=== PATIENT | female | born 1985 | race African-American/Black ===

== ENCOUNTER 2021-03-05 16:42 | Emergency (ER) | payer BC, MEDICAID, SELFPAY ==
[2021-03-05 16:48] VITALS: BP 143/87; PULSE 104; RESP 20; TEMP 36.4; O2SAT 100
[2021-03-05 17:16] LABS: Basophils Absolute Auto 0.1 K/mm3 (0.0-0.1); Basophils Percent Auto 0.5 % (0.2-1.2); Eosinophils Absolute Auto 0.3 K/mm3 (0-0.3); Eosinophils Percent Auto 1.9 % (0-4.4); Hematocrit 32.2 % (37.0-47.0); Hemoglobin 10.7 g/dL (12.0-15.0); Immature Granulocyte Absolute 0.38 K/mm3 (0.00-0.031); Immature Granulocyte Percent A 2.3 % (0-0.5); Lymphocytes Absolute Auto 2.91 K/mm3 (0.9-3.2); Mean Corpuscular HGB Conc 33.2 g/dl (32-36); Mean Corpuscular Hemoglobin 31.8 pg (26-34); Mean Corpuscular Volume 95.8 fl (80-100); Mean Platelet Volume 11.3 fl (7.4-10.4); Monocytes Percent Auto 12.4 % (2.6-8.5); Neutrophils Absolute Auto 10.5 K/mm3 (1.3-6.7); Neutrophils Percent Auto 64.9 % (45.5-73.1); Platelet Count Result 274 k/mm3 (150-375); Red Blood Count 3.36 M/mm3 (4.2-5.4); Red Cell Distribution Width 13.4 % (11.5-14.5); White Blood Count 16.2 K/mm3 (4.5-10.0)
--- NOTE | 2021-03-05 17:23 | PC.NURSE ---
Patient stated that she had been battling her depression for a while. She said in the past before she was she was taking zoloft, but was not able to get her prescription renewed. Patient explained when she said that she wanted to harm her children, it was only because she did not want to leave them behind. The patient was very tearful when explaining her feelings.
[2021-03-05 17:24] LABS: Alanine Aminotransferase 12 U/L (4-35); Albumin Level 3.6 g/dL (3.5-5.1); Alkaline Phosphatase 120 U/L (38-126); Anion Gap 4 mmol/L (8-16); Aspartate Amino Transferase 23 U/L (14-36); Bilirubin,Total < 0.1 mg/dL (0.2-1.3); Blood Urea Nitrogen 4 mg/dL (7-17); Calcium 8.7 mg/dL (8.4-10.2); Carbon Dioxide 21 mmol/L (22-30); Chloride 110 mmol/L (98-107); Estimated CRCL calculation 157 ml/min; Estimated Glomerular Filt Rate > 60; Ethanol < 10 mg/dL (<10); Glucose 81 mg/dL (65-105); Potassium 4.1 mmol/L (3.4-5.0); Sodium 135 mmol/L (137-145)
[2021-03-05 17:34] LABS: Add Urine Microscopic? YES; Appearance Urine Clear (Clear); Bacteria Urine Trace /hpf; Bilirubin Urine Negative (Negative); Blood Urine 2+ (Negative); Color Urine Straw (Yellow); Glucose Urine UA Negative (Negative); Ketones Urine Negative (Negative); Leukocyte Esterase Ur Negative LEU/UL (Negative); Mucus Urine Rare /lpf; Nitrate Urine Negative (Negative); Protein Urine 2+ mg/dL (Negative); RBC Urine 0-2 /hpf (0-2); Specific Grav Ur 1.005 (1.001-1.035); Squamous Epithelial Cell Urine Few /hpf (Few); Urobilinogen Urine Negative mg/dL (<2.0); WBC Urine 0-3 /hpf
[2021-03-05 17:44] LABS: Barbiturate Screen Urine Negative (Negative); Benzodiazepines Screen Urine Negative (Negative)
[2021-03-05 17:50] LABS: Amphetamine Screen Urine Negative (Negative); Cannabinoid Screen Urine Negative (Negative); Cocaine Screen Urine Negative (Negative); Methadone Screen Urine Negative (Negative); Opiate Screen Urine Negative (Negative); Phencyclidine Screen Urine Negative (Negative)
--- NOTE | 2021-03-05 18:11 | ED.PSYCH ---
HPI - Psych General Chief Complaint: Psychiatric Symptoms <ORLY Skelton - Last Filed: 03/05/21 21:48> Stated Complaint: SI <ORLY Skelton - Last Filed: 03/05/21 21:48> Time Seen by Provider: 03/05/21 17:02 <ORLY Skelton - Last Filed: 03/05/21 21:48> Source: patient <ORLY Skelton - Last Filed: 03/05/21 21:48> Mode of arrival: ambulatory <ORLY Skelton - Last Filed: 03/05/21 21:48> Limitations: no limitations <ORLY Skelton - Last Filed: 03/05/21 21:48> History of Present Illness HPI Narrative: Patient is a 35 year old female who presents with suicidal and homicidal ideations starting today. Patient is 36 weeks gestation. She has children ages 14, 7, and 2. Patient reports she is having thoughts of drowning her children and then overdosing herself. She reports that 14 year olds father is . Father of 7,2 and is not physically around a bunch . She reports financial assistance but no physical help with kids. 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 She reports approximately 2-3 months ago she discussed depression with OBGYN who started on Zoloft, but she stopped taking becasue of the way it made me feel . Patient denies taking any daily medications. She reports no history of depression, suicidal ideation or homicidal ideation. Patient reports cutting off contact with her family in the past few weeks and that PD completed a welfare check last week on patient. She reports supportive family, however, she has stopped talking to them for no reason. Patient reports that she called in to work x 2 last week. She reports she has no energy and that her home is messy and unorganized. Patient is tearful during assessment. She states that she does not want to harm herself or children but she has been having thoughts. <ORLY Skelton - Last Filed: 03/05/21 21:48> Related Data Home Medications: Home Medications Medication Instructions Recorded Confirmed Pre-Liz Multivitamins/Minerals 03/05/21 <ORLY Skelton - Last Filed: 03/05/21 21:48> Allergies/Adverse Reactions: Allergies Allergy/AdvReac Type Severity Reaction Status Date / Time No Known Allergies Allergy Verified 03/05/21 16:56 <ORLY Skelton - Last Filed: 03/05/21 21:48> Review of Systems Review of Systems: Narrative: CONSTITUTIONAL: Denies fever, chills, or sweats. EYES: Denies visual changes, redness, or discharge. ENT: Denies rhinorrhea, congestion, sore throat, or otalgia. CARDIOVASCULAR: Denies chest pain, palpitations, or edema. RESPIRATORY: Denies cough or dyspnea. GASTROINTESTINAL: Denies abdominal pain, nausea, vomiting, or diarrhea. GENITOURINARY: Denies dysuria or hematuria. SKIN: Denies rash or itching. MUSCULOSKELETAL: Denies back pain, joint pain, or myalgia. NEUROLOGIC: Denies headache, numbness, dizziness, or weakness. PSYCHIATRIC: Reports depression x months <ORLY Skelton - Last Filed: 03/05/21 21:48> [facility] Past Medical History Medical History: Medical History No significant past medical history <ORLY Skelton - Last Filed: 03/05/21 21:48> Surgical History Surgical History: Surgical History No significant past surgical history <ORLY Skelton - Last Filed: 03/05/21 21:48> Family History Family History: Family History (Updated 03/05/21 @ 18:26 by ORLY Skelton) Other Unknown family medical history <ORLY Skelton - Last Filed: 03/05/21 21:48> Social History Social History: Social History Substance use type: does not use Gender identity (if verbalized by the patient): Female <ORLY Skelton - Last Filed: 03/05/21 21:48> Comments At the time of signature, I have reviewed and agree with gabriella
[2021-03-05] MEDS: ACETAMINOPHEN 325 MG TABLET 650 MG PO (20:59)
[2021-03-06] MEDS: ACETAMINOPHEN 500 MG TABLET 1000 MG PO (04:42)
[2021-03-06 09:05] VITALS: BP 110/61; PULSE 86; RESP 10; TEMP 36.7; O2SAT 100
--- NOTE | 2021-03-06 16:09 | PC.NURSE ---
PT C/O L SHOULDER PAIN, REQUESTING TYLENOL. DR BURRELL NOTIFIED. DIGNA
[2021-03-06] MEDS: ACETAMINOPHEN 325 MG TABLET 650 MG PO (16:27)
--- NOTE | 2021-03-06 19:09 | PC.NURSE ---
Report received from FREDDY Engel. Assumed care of patient at this time.
[2021-03-06 19:55] LABS: SARS-CoV-2 RNA PCR Negative
--- NOTE | 2021-03-06 21:15 | PC.NURSE ---
rn spoke with crisis. crisis notified that pt has a negative covid test.
--- NOTE | 2021-03-06 22:36 | PC.NURSE ---
FREDDY Dunlap @ [facility] to fax packet for patient.
--- NOTE | 2021-03-06 22:46 | ECG_ITS ---
Measurements Intervals [place] Rate: 67 P: 72 NV: 185 QRS: 79 QRSD: 89 T: 43 QT: 376 QTc: 398 Interpretive Statements SINUS RHYTHM WITH SINUS ARRHYTHMIA NORMAL ECG Electronically Signed On 03-07-2021 6:23:39 CDT by Ari Bob D.O.
--- NOTE | 2021-03-06 23:56 | PC.NURSE ---
Pt escorted to room 309 for a shower with sitter and security monitor at this time.
--- NOTE | 2021-03-07 00:13 | PC.NURSE ---
Patient now back in her room escorted by security and sitter after her shower. Patient still has sitter at bedside.
--- NOTE | 2021-03-07 03:43 | PC.NURSE ---
Fabi from [facility] calls to inform this nurse that the patient is denied at this time, but can call or attempt to place her tomorrow. ED charge informed.
--- NOTE | 2021-03-07 06:05 | PC.NURSE ---
0057 Contacted crisis to come re-evaluate the patient. Spoke with Diane, she stated she will have someone come to re-evaluate the patient.
[2021-03-07 06:06] VITALS: BP 120/62; PULSE 80; RESP 16; TEMP 36.5; O2SAT 97
--- NOTE | 2021-03-07 07:26 | PC.NURSE ---
cold storage worker at bedside for re-eval. Pt resting on cart HOB elevated, non-labored respirations
--- NOTE | 2021-03-07 07:45 | PC.NURSE ---
Pt ambulated steady gait to BR, denies contractions or vaginal bleeding. Denies SI/HI I feel fine now, I'm ready to go home and hug my kids, and my daughter's 8th grade graduation is tomorrow morning . Pt states her mother is staying over with her kids, she has family support also for when the baby comes. Endorses she was in a dark place for past two weeks and was asking her providers for help, on Monday a co-worker called the crisis line which sent her here. She also has a telehealth appointment with a nurse practitioner tomorrow afternoon.
--- NOTE | 2021-03-07 09:21 | PC.NURSE ---
pt. muller requested toothbrush, toothpaste, and mouthwash. Items provided to pt. muller after asking RN in charge of pt.
--- NOTE | 2021-03-07 09:45 | PC.NURSE ---
1:1 sitter monitoring ongoing. Pt provided recliner for comfort. Per genetic engineer awaiting [facility] acceptance. Pt remains calm and cooperative, non-labored respirations
--- NOTE | 2021-03-07 13:00 | PC.NURSE ---
Pt has pamela using telephone in hallway to speak with family, pt tearful, consolable. Resting in recliner
--- NOTE | 2021-03-07 14:15 | PC.NURSE ---
Received call from construction pit worker at [facility], aware pt has been re-evaluated this am and inpatient still recommended. [facility] intake paged
--- NOTE | 2021-03-07 15:24 | PC.NURSE ---
Spoke with Acosta at crisis, states she will work on looking into further facilities for placement. Awaiting return call from Aaliyah (have paged twice) [phone]
--- NOTE | 2021-03-07 17:00 | PC.NURSE ---
Re-faxed information packet to [facility], spoke with mental health worker ([phone]) and states she will check with the nurse reviewing the records if they received the re-fax
[2021-03-07 17:55] VITALS: BP 115/66; PULSE 75; RESP 18; TEMP 36.7; O2SAT 100
[2021-03-07] MEDS: ACETAMINOPHEN 500 MG TABLET 1000 MG PO (18:05)
--- NOTE | 2021-03-07 18:28 | PC.NURSE ---
[facility]affi Verdin in [place] is currently full.
--- NOTE | 2021-03-07 18:53 | PC.NURSE ---
Pt sitting up on cart, calm and cooperative, states she is getting frustrated, has been speaking on telephone with family frequently. Completed dinner tray. 1:1 sitter monitoring ongoing
--- NOTE | 2021-03-07 21:20 | PC.NURSE ---
Pt remains calm and cooperative. Pt request supplies so that she can clean up. Pt given supplies. Pt currently resting in bed. Sitter outside the room.
[2021-03-07 23:21] VITALS: BP 119/70; PULSE 86; RESP 18; O2SAT 100
--- NOTE | 2021-03-07 23:23 | PC.NURSE ---
Pt remains calm and cooperative. No distress. Snack provided. Sitter with pt.
[2021-03-08] MEDS: ACETAMINOPHEN 500 MG TABLET 1000 MG PO (04:18)
[2021-03-08 05:53] VITALS: BP 118/67; PULSE 78; RESP 16; O2SAT 100
--- NOTE | 2021-03-08 06:06 | PC.NURSE ---
Pt remains calm and cooperative. Sitter with pt.
[2021-03-08] MEDS: polyethylene glycoL 3350 17 GM POWD.PACK PO (14:11)
--- NOTE | 2021-03-08 15:08 | PC.NURSE ---
Pt. becoming agitated about waiting. ERP aware. Pt. asking to speak with the ERP.
[2021-03-08 15:27] VITALS: BP 108/61; PULSE 85; RESP 14; TEMP 36.9; O2SAT 99
[2021-03-08 19:57] VITALS: BP 128/72; PULSE 70; RESP 18; TEMP 36.2; O2SAT 100
--- NOTE | 2021-03-08 20:05 | PC.NURSE ---
Pt presented to ED with homicidal ideations toward her children and suicidal ideations. Pt states she feels that she has been dealing with untreated post for the last 2 years after her last and is currently 39 weeks . Pt states she shared her feeling with her pcp and she completely disregarded all that I had to say. My friend told me that it was best that I came here and I didn't feel like my doctor was going to help me so I came. Now I don't feel like I'm getting the help I need here. I have spoke to a psychiatrist and they didn't give me zoloft or anything like that. I thought someone was going to talk to me, give me some medicine and then I could go home . Pt is calm and cooperative with staff and states that she is frustrated. Denies homicidal and suicidal ideations at this time. Vitals are stable and pt in no obvious distress.
--- NOTE | 2021-03-08 23:03 | PC.NURSE ---
Pt resting on cart in its lowest position. Remains calm and cooperative. Pt is in no obvious distress and advised to stop staff for assistance.
--- NOTE | 2021-03-09 00:43 | PC.NURSE ---
Pt on cart sleeping and in no obvious distress.
--- NOTE | 2021-03-09 00:48 | PC.NURSE ---
Crisis called for an update on pt bed status.
--- NOTE | 2021-03-09 00:51 | PC.NURSE ---
Spoke with Boy from [facility] who states they will continue to look for a bed for pt and should likely have a bed tomorrow or later today.
--- NOTE | 2021-03-09 00:53 | PC.NURSE ---
Boy states he will call back if he obtains any new information.
--- NOTE | 2021-03-09 02:17 | PC.NURSE ---
pt on cart sleeping and in no obvious distress.
--- NOTE | 2021-03-09 04:53 | PC.NURSE ---
Pt on cart sleeping and is in no obvious distress.
--- NOTE | 2021-03-09 05:59 | PC.NURSE ---
Pt on cart sleeping and is in no obvious distress.
--- NOTE | 2021-03-09 07:30 | PC.NURSE ---
Pt asleep, easily arousable, non-labored respirations. Awaiting crisis re-eval and placement
--- NOTE | 2021-03-09 08:30 | PC.NURSE ---
Pt sitting up on cart eating breakfast tray, states her mother and brother will come by today to vouch that they will support me and I can't go to [place], I deliver next week at [facility] . Pt denies contractions or vaginal bleeding, + movement.
--- NOTE | 2021-03-09 10:10 | PC.NURSE ---
dry yard worker Ann Marie at bedside for assessment
--- NOTE | 2021-03-09 10:45 | PC.NURSE ---
Per [place] textile worker pt worked out a safety plan, has help from mother and brother at home.
--- NOTE | 2021-03-09 11:36 | PC.NURSE ---
Pt calm and cooperative, pleasant, speaking on telephone in hallway with family. Per electric utility lineworker and Dr. Sherman pt to be d/mary ellen with safety plan, pt is driving her own car home. Pt states she is excited to see her kids, her mother and brother are with them and will be staying with the patient
== END 2021-03-09 11:55 | disposition home or self-care (01) ==
PROVIDERS: Emergency Medicine; Emergency Provider Emergency Medicine
DX: O99.343 Other mental disorders complicating pregnancy, third trimester (principal); F32.9 Major depressive disorder, single episode, unspecified; R45.851 Suicidal ideations; R45.850 Homicidal ideations; Z20.822 Contact with and (suspected) exposure to COVID-19; Z3A.36 36 weeks gestation of pregnancy
CPT/HCPCS: 36415; 80053; 80307; 81001; 84443; 85025; 93005; 99284; A9270; C9803; J7120; U0003; U0005